=== PATIENT | female | born 1965 | race Two or more races ===

== ENCOUNTER 2017-06-05 17:53 | Emergency (ER) | payer MEDICAID ==
[~2017-06-05] VITALS: Ht 154.9 cm; Wt 66.7 kg
[2017-06-05 18:19] VITALS: BP 93/143
[2017-06-05] MEDS ORDERED: TETRACAINE HCL 0.5% OPTH(EYE) SOLN 4ML LEFTEYE ONE (20:00)
== END 2017-06-05 21:34 | disposition home or self-care (01) ==
LOC: ER 17:53
DX: H00.15 Chalazion left lower eyelid (principal); J32.9 Chronic sinusitis, unspecified; Z88.6 Allergy status to analgesic agent

== ENCOUNTER 2017-06-18 21:20 | Emergency (ER) | payer MEDICAID ==
[~2017-06-18] VITALS: Ht 154.9 cm; Wt 71.7 kg
[2017-06-18 23:16] VITALS: BP 131/83
== END 2017-06-18 23:46 | disposition home or self-care (01) ==
LOC: ER 21:20
DX: H57.8 Other specified disorders of eye and adnexa (principal); F17.210 Nicotine dependence, cigarettes, uncomplicated; Z88.8 Allergy status to other drugs, medicaments and biological substances; Z98.51 Tubal ligation status

== ENCOUNTER 2017-07-22 13:13 | Emergency (ER) | payer MEDICAID ==
[~2017-07-22] VITALS: Ht 154.9 cm; Wt 71.7 kg
[2017-07-22 14:28] VITALS: BP 130/89
== END 2017-07-22 15:22 | disposition home or self-care (01) ==
LOC: ER 13:13
DX: G89.29 Other chronic pain (principal); M54.42 Lumbago with sciatica, left side; F17.210 Nicotine dependence, cigarettes, uncomplicated; Z88.6 Allergy status to analgesic agent; Z88.8 Allergy status to other drugs, medicaments and biological substances; Z98.51 Tubal ligation status

== ENCOUNTER 2017-10-04 14:40 | Emergency (ER) | payer MEDICAID ==
[~2017-10-04] VITALS: Ht 154.9 cm; Wt 70.3 kg
[2017-10-04 15:44] VITALS: BP 148/94
== END 2017-10-04 16:49 | disposition home or self-care (01) ==
LOC: ER 14:40
DX: L72.3 Sebaceous cyst (principal); B99.9 Unspecified infectious disease; G89.29 Other chronic pain; M54.5 Low back pain; F17.210 Nicotine dependence, cigarettes, uncomplicated; Z98.51 Tubal ligation status; Z88.6 Allergy status to analgesic agent; Z88.8 Allergy status to other drugs, medicaments and biological substances

== ENCOUNTER 2017-11-25 17:34 | Emergency (ER) | payer MEDICAID ==
[~2017-11-25] VITALS: Ht 154.9 cm; Wt 64.4 kg
[2017-11-25 18:00] VITALS: BP 137/97
== END 2017-11-25 19:22 | disposition home or self-care (01) ==
LOC: ER 17:34
DX: T78.40XA Allergy, unspecified, initial encounter (principal); F17.210 Nicotine dependence, cigarettes, uncomplicated; Z88.6 Allergy status to analgesic agent; Z98.51 Tubal ligation status

== ENCOUNTER 2018-07-15 17:15 | Emergency (ER) | payer MEDICAID ==
[~2018-07-15] VITALS: Ht 154.9 cm; Wt 71.7 kg
[2018-07-15 17:26] VITALS: BP 133/83
== END 2018-07-15 21:00 | disposition home or self-care (01) ==
LOC: ER 17:15
DX: M54.42 Lumbago with sciatica, left side (principal); M54.41 Lumbago with sciatica, right side; G89.29 Other chronic pain; F17.210 Nicotine dependence, cigarettes, uncomplicated; Z76.0 Encounter for issue of repeat prescription; Z98.51 Tubal ligation status; Z88.6 Allergy status to analgesic agent

== ENCOUNTER 2020-07-07 17:30 | Emergency (ER) | payer MEDICAID ==
[~2020-07-07] VITALS: Ht 154.9 cm; Wt 72.6 kg
[2020-07-07 20:43] VITALS: BP 126/76
[2020-07-07 23:16] LABS: Urine Bacteria MANY /hpf (None Seen); Urine Blood Negative /uL (Negative); Urine Mucus FEW (None Seen); Urine Specific Gravity 1.008 (1.001-1.035); Urine WBC 4 /hpf (0 - 5)
== END 2020-07-08 01:05 | disposition home or self-care (01) ==
LOC: ER 17:30
DX: S33.5XXA Sprain of ligaments of lumbar spine, initial encounter (principal); M54.16 Radiculopathy, lumbar region; E66.9 Obesity, unspecified; G89.29 Other chronic pain; F17.210 Nicotine dependence, cigarettes, uncomplicated; Z68.30 Body mass index [BMI] 30.0-30.9, adult; Z98.51 Tubal ligation status; Z88.6 Allergy status to analgesic agent; Z20.828 Contact with and (suspected) exposure to other viral communicable diseases; X50.9XXA Other and unspecified overexertion or strenuous movements or postures, initial encounter; Y93.89 Activity, other specified; Y92.89 Other specified places as the place of occurrence of the external cause; Y99.8 Other external cause status
CPT/HCPCS: 36415; 71045; 81001; 87426; 87804

== ENCOUNTER → 2021-11-05 | Emergency (ER) | payer MEDICAID ==
[~2021-11-05] VITALS: Ht 154.9 cm; Wt 72.6 kg
[2021-11-05 13:53] LABS: Basophils # (auto) 0.1 10 ^3/uL (0-0.2); Eosinophils # (auto) 0.2 10 ^3/uL (0-0.8); Eosinophils % (auto) 3.5 % (0.0-7.0); Hematocrit 37.6 % (36.0-46.0); Hemoglobin 12.8 g/dL (12.2-16.2); Lymphocytes # (auto) 1.8 10 ^3/uL (0.4-5.4); Lymphocytes % (auto) 28.6 % (10.0-50.0); Mean Corpuscular Hemoglobin 31.2 pg (28.0-32.0); Mean Corpuscular Hgb Conc. 33.9 g/dL (32.0-36.0); Mean Corpuscular Volume 92.1 fL (80.0-100.0); Monocytes # (auto) 0.4 10 ^3/uL (0-1.3); Monocytes % (auto) 6.4 % (0.0-12.0); Neutrophils # (auto) 3.8 10 ^3/uL (1.6-8.6); Neutrophils % (auto) 60.5 % (37.0-80.0); Nucleated Red Blood Cells % 0.2 %; Red Blood Cells 4.08 10^6/uL (4.0-5.20); Red Cell Distribution Width 13.1 % (11.8-14.3); White Blood Cell 6.2 10^3/uL (4.4-10.8)
[2021-11-05 14:14] LABS: Albumin 3.8 g/dL (3.4-5.0); BUN/Creatinine Ratio 17.3; Calcium 8.5 mg/dL (8.5-10.1); Potassium 4.1 mmol/L (3.5-5.1)
[2021-11-05 14:17] LABS: Bilirubin, Total 0.2 mg/dL (0.2-1.0); Total Protein 7.2 g/dL (6.4-8.2)
[2021-11-05 16:00] VITALS: BP 158/80
== END | disposition home or self-care (01) ==
LOC: ER 12:39
DX: R22.43 Localized swelling, mass and lump, lower limb, bilateral (principal); F17.210 Nicotine dependence, cigarettes, uncomplicated; Z98.51 Tubal ligation status; Z88.6 Allergy status to analgesic agent
CPT/HCPCS: 36415; 80053; 85025

== ENCOUNTER 2022-02-04 02:17 | Emergency (ER) | payer MEDICAID ==
[~2022-02-04] VITALS: Ht 154.9 cm; Wt 82.1 kg
[2022-02-04 05:12] VITALS: BP 153/80
== END 2022-02-04 05:19 | disposition home or self-care (01) ==
LOC: ER 02:17
DX: S80.812A Abrasion, left lower leg, initial encounter (principal); S80.811A Abrasion, right lower leg, initial encounter; F17.210 Nicotine dependence, cigarettes, uncomplicated; Z88.6 Allergy status to analgesic agent; Z98.51 Tubal ligation status; X58.XXXA Exposure to other specified factors, initial encounter; Y93.89 Activity, other specified; Y92.89 Other specified places as the place of occurrence of the external cause; Y99.8 Other external cause status

== ENCOUNTER 2024-03-12 13:10 | Emergency (ER) | payer MEDICAID ==
[~2024-03-12] VITALS: Ht 154.9 cm; Wt 73.9 kg
[2024-03-12 15:33] VITALS: BP 126/87; PULSE 71; RESP 16; TEMP 98.1; O2SAT 97
[2024-03-12] MEDS ORDERED: ACET-1080 PO (16:37)
[2024-03-12] MEDS: ACETAMINOPHEN 500 MG TAB PO ONE (16:47)
== END 2024-03-12 16:52 | disposition home or self-care (01) ==
LOC: ER 13:10
DX: S93.402A Sprain of unspecified ligament of left ankle, initial encounter (principal); Z88.6 Allergy status to analgesic agent; Z98.51 Tubal ligation status; X50.1XXA Overexertion from prolonged static or awkward postures, initial encounter; Y93.89 Activity, other specified; Y92.89 Other specified places as the place of occurrence of the external cause; Y99.8 Other external cause status
CPT/HCPCS: 73562; 73610

== ENCOUNTER 2024-03-17 12:32 | Emergency (ER) | payer MEDICAID ==
[~2024-03-17] VITALS: Ht 154.9 cm; Wt 75.1 kg
[~2024-03-17 12:32] MED LIST: ACET-1080 PO
[2024-03-17 13:30] VITALS: BP 95/63; PULSE 64; RESP 14; TEMP 98.5; O2SAT 97
[2024-03-17] MEDS ORDERED: ERY05OO OP (13:47)
[2024-03-17] MEDS ORDERED: KETO0.5S31 LEFTEYE (13:47)
== END 2024-03-17 13:56 | disposition home or self-care (01) ==
LOC: ER 12:32
DX: H10.32 Unspecified acute conjunctivitis, left eye (principal); H20.9 Unspecified iridocyclitis; F17.210 Nicotine dependence, cigarettes, uncomplicated; Z98.51 Tubal ligation status; Z88.6 Allergy status to analgesic agent

== ENCOUNTER 2024-11-24 18:52 | Emergency (ER) | payer MEDICAID ==
[~2024-11-24] VITALS: Ht 154.9 cm; Wt 71.1 kg
[~2024-11-24 18:52] MED LIST changes: +ERY05OO OP; +KETO0.5S31 LEFTEYE
[2024-11-24 20:35] VITALS: BP 125/65; PULSE 78; RESP 18; TEMP 98.9; O2SAT 97
[2024-11-24] MEDS ORDERED: FLUT1SPR5 (20:58)
[2024-11-24] MEDS ORDERED: AZIT-43 PO (20:58)
--- NOTE | 2024-11-24 20:58 | ED.PDOC ---
SOB-HPI HPI Comments 59-YEAR-OLD FEMALE PRESENTS TO ER WITH COMPLAINTS OF SORE THROAT X5 DAYS. PATIENT REPORTS THAT SHE HAS BEEN EXPERIENCING SORE THROAT AND SINUS CONGESTION X5 DAYS WITH ASSOCIATED MILD DRY COUGH X1 DAY. REPORTS THAT SHE HAS BEEN USING [id number] COLD AND SINUS RELIEF MEDICATION WITHOUT IMPROVEMENT. SHE REPORTS 10/10 SORE THROAT PAIN, DENYING ANY OTHER CURRENT PAIN. PATIENT PRESENTS TO ER AMBULATORY ON ARRIVAL, WITH STEADY GAIT, IN NO DISTRESS WITH VITALS STABLE. 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 FRAME History Family History Family History: Reviewed,noncontributory to illness, Family hx of DM Social History Smoker: Non-Smoker Alcohol: Occasionally Drugs: Denies Drug Use Lives In: Home Constitutional: denies: chills, diaphoresis, fatigue, fever, malaise, sweats, weakness, others EENTM: reports: others ( STATED IN HPI) Respiratory: reports: others ( STATED IN HPI) Cardiovascular: denies: chest pain, dizzy spells, diaphoresis, Dyspnea on exertion, edema, irregular heart beat, left arm pain, lightheadedness, palpitations, PND, syncope, others Gastrointestinal: denies: abdomen distended, abdominal pain, blood streaked bowels, constipated, diarrhea, dysphagia, difficulty swallowing, hematemesis, melena, nausea, poor appetite, poor fluid intake, rectal bleeding, rectal pain, vomiting, others Genitourinary: denies: abnormal vagina bleeding, burning, dyspareunia, dysuria, flank pain, frequency, hematuria, incontinence, pain, , vagina discharge, urgency, others Neurological: denies: dizziness, fainting, headache, left sided numbness, left sided weakness, numbness, paresthesia, pre-existing deficit, right sided numbness, right sided weakness, seizure, speech problems, tingling, tremors, weakness, others Musculoskeletal: denies: back pain, gout, joint pain, joint swelling, muscle pain, muscle stiffness, neck pain, others Integumetry: denies: bruises, change in color, change in hair/nails, dryness, laceration, lesions, lumps, rash, wounds, others Allergic/Immunocompromised: denies: Difficulty Healing, Frequent Infections, Hives, Itching, others Hematologic/Lymphatic: denies: anemia, blood clots, easy bleeding, easy bruising, swollen glands, others Endocrine: denies: excessive hunger, excessive sweating, excessive thirst, excessive urination, flushing, intolerance to cold, intolerance to heat, unexplained weight gain, unexplained weight loss, others Psychiatric: denies: anxiety, bipolar disorder, depression, hopeless, panic disorder, schizophrenia, sleepless, suicidal, others Physical Exam General Appearance: No Apparent Distress, Normal HEENT: Normal ENT Inspection, PERRL/EOMI, Pharynx Normal, TMs Normal Neck: Full Range of Motion, Non-Tender, Normal Respiratory: Chest Non-Tender, Lungs Clear, No Accessory Muscle Use, No Respiratory Distress, Normal Breath Sounds Cardiovascular: No Murmur, No Gallop, Regular Rate/Rhythm Breast Exam: Deferred Gastrointestinal: NOT DONE Genitalia: Deferred Pelvic: Deferred Rectal: Deferred Extremities: Normal capillary refill, Normal range of motion 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 Was a procedure done?: No Sedation Sedation?: No Differential Dx Differential Diagnosis: Pneumonia, Respiratory Distress, Sinusitis X-Ray, Labs, Meds, VS Vital Signs Date Time Temp Pulse Resp B/P (MAP) Pulse Ox O2 Delivery O2 Flow Rate FiO2 11/24/24 20:35 98.9 78 18 125/65 (85) 97 98.9 11/24/24 20:35 78 18 97 Room Air 11/24/24 19:15 98.9 78 18 125/65 (85) 97 98.9 PATIENT IN NO DISTRESS DURING ER VISIT/PRIOR TO DISCHARGE ADVISED TO DRINK PLENTY OF FLUIDS ADVISED TO FOLLOW UP WITH PCP IN 1-2 DAYS PATIENT VERBALIZED UNDERSTANDING AND AGREEABLE WITH CURRENT PLAN OF CARE ADVISED TO RETURN TO ER IMMEDIATELY IF SYMPTOMS WORSEN Time of 1ST Reevaluation: 20:24 Reevaluation 1ST: N/A Patient Education/Counseling: Diagnosis, Treatment, Prognosis, Need For Follow Up Family Education/Counseling: No Family Present Departure 1 Departure Time of Disposition: 20:52 Impression: Primary Impression: Upper respiratory infection Qualified Codes: J06.9 - Acute upper respiratory infection, unspecified Disposition: HOME / SELF CARE / HOMELESS Condition: Stable e-Prescriptions Acetaminophen (Acetaminophen) 500 Mg Tab 500 MG PO Q4HPRN, #30 TAB 0 Refills Prov: MARIOLA RAMIREZ 11/24/24 Fluticasone Propionate (Nasal) (Flonase Allergy Relief) 50 Mcg/Act Spr 2 SPRAY NA DAILY PRN, #1 SPRAY 0 Refills Prov: MARIOLA RAMIREZ 11/24/24 Azithromycin (Azithromycin) 250 Mg Tab 250 MG PO DAILY MDD 500 for 5 Days, #6 TAB 0 Refills 2 TABLETS ORALLY ON DAY ONE, THEN 1 TABLET ORALLY DAILY FOR 4 DAYS Prov: MARIOLA RAMIREZ 11/24/24 Discharged With: Self Critical Care Note Critical Care Time?: No Stability Stability form required: No Heart Score Heart Score: Heart Score Response (Comments) Value History N/A 0 EKG N/A 0 Age N/A 0 Risk Factors N/A 0 Troponin N/A 0 Total 0 MARIOLA RAMIREZ Nov 24, 2024 20:58
[2024-11-24] MEDS ORDERED: ACET500T58 PO (21:01)
== END 2024-11-24 21:04 | disposition home or self-care (01) ==
LOC: ER 18:58
DX: J06.9 Acute upper respiratory infection, unspecified (principal); Z98.51 Tubal ligation status; Z98.890 Other specified postprocedural states